=== PATIENT | female | born 1965 | race Caucasian/White ===

== ENCOUNTER → 2016-10-03 | Outpatient (CLI) | payer OTHER ==
--- NOTE | 2016-10-03 09:20 | REPMRS ---
Patient History The patient states she had a clinical breast exam in 10/04 Family history of colorectal cancer in maternal grandmother at age 50 or over. Taking hormonal contraceptives for 28 years. Digital Woman Screen Mammo: October 03, 2016 - Exam #: [id number] Bilateral CC and MLO view(s) were taken. Technologist: Kailey Oleary, Technologist Prior study comparison: September 30, 2015, digital woman screen mammo performed at [facility]. September 29, 2014, digital woman screen mammo performed at [facility]. September 03, 2013, digital woman screen mammo performed at [facility]. FINDINGS: The breast tissue is heterogeneously dense. This may lower the sensitivity of mammography. There is a moderate amount of heterogeneously dense fibroglandular tissue which is fairly symmetric. There is no interval development of dominant mass, architectural distortion, or clustered microcalcification typical of malignancy. There has been no change in the appearance of the mammogram from the prior studies. ASSESSMENT: BI-RADS/ACR category 1 mammogram. Negative. Recommendation Routine screening mammogram of both breasts in 1 year (for women over age 40). This mammogram was interpreted with the aid of an FDA-approved computer-aided dectection system. Electronically Signed By: Chung Haro MD 10/03/16 0919
== END ==
LOC: M WHC 08:02
PROVIDERS: ATTEND Nurse Practitioner Family
DX: Z12.31 Encounter for screening mammogram for malignant neoplasm of breast (principal); Z79.3 Long term (current) use of hormonal contraceptives

== ENCOUNTER → 2016-10-03 | Outpatient (REF) | payer OTHER | LOC: M SFHCWAGY 11:13 | PROVIDERS: ATTEND Nurse Practitioner Family | DX: Z12.4 Encounter for screening for malignant neoplasm of cervix (principal) ==

== ENCOUNTER → 2017-03-17 | Outpatient (CLI) | payer OTHER ==
--- NOTE | 2017-03-17 09:29 | REP ---
Clinical: Abnormal uterine bleeding . Technique: Transabdominal pelvic ultrasound followed by transvaginal examination for better evaluation of the endometrium and adnexa with color Doppler evaluation of the ovaries. Findings: Bladder is unremarkable and measures 8.1 x 5.5 x 9.3 cm . Myomatous retroverted uterus measures 8.9 x 5.0 x 4.1 cm. The endometrial complex measures 4.5 mm thickness. IUD is identified in satisfactory position. Right posterior intramural fibroid measures 2.2 cm maximal diameter. Right lateral intramural fibroid measures 1.1 cm maximal diameter. Left lateral intramural fibroid measures 1 cm maximal diameter. Left ovary measures 3.9 x 2.8 x 3.0 cm and includes 1.3 cm and 3.1 cm cysts. Right ovary measures 3.4 x 1.7 x 1.6 cm. No pelvic fluid or adnexal mass lesion identified. Impression: 1. Heterogeneous myomatous retroverted uterus with at least three discrete intramural fibroids as described above. IUD in satisfactory position. 2. Likely physiologic cysts within the left ovary. Consider follow-up examination in 4-6 weeks to evaluate for resolution.
== END ==
LOC: M WHC 07:53
PROVIDERS: ATTEND Nurse Practitioner Family
DX: N93.9 Abnormal uterine and vaginal bleeding, unspecified (principal); D25.9 Leiomyoma of uterus, unspecified; N85.4 Malposition of uterus

== ENCOUNTER → 2017-03-17 | Outpatient (REF) | payer OTHER ==
[2017-03-17 12:29] LABS: FOLLICLE STIMULATING HORMONE 27.8 mIU/mL
== END ==
LOC: M SFHCWAGY 11:27
PROVIDERS: ATTEND Nurse Practitioner Family
DX: N93.9 Abnormal uterine and vaginal bleeding, unspecified (principal); N95.1 Menopausal and female climacteric states

== ENCOUNTER → 2017-10-03 | Outpatient (CLI) | payer OTHER | LOC: M WHC 08:13 | DX: Z12.31 Encounter for screening mammogram for malignant neoplasm of breast (principal); R92.2 Inconclusive mammogram | CPT/HCPCS: 77067 ==

== ENCOUNTER → 2017-10-06 | Outpatient (CLI) | payer OTHER | LOC: M RAD 08:49 | DX: R92.8 Other abnormal and inconclusive findings on diagnostic imaging of breast (principal); R92.0 Mammographic microcalcification found on diagnostic imaging of breast | CPT/HCPCS: 77065 ==

== ENCOUNTER → 2018-10-04 | Outpatient (CLI) | payer OTHER ==
--- NOTE | 2018-10-04 08:57 | REPMRS ---
Patient History The patient states she had a clinical breast exam in 10/06 Family history of colorectal cancer at age 50 or over in maternal grandmother. Taking hormonal contraceptives for 30 years. Digital Woman Screen Mammo: October 04, 2018 - Exam #: [id number] Bilateral CC and MLO view(s) were taken. Technologist: Kailey Oleary, Technologist Prior study comparison: October 03, 2017, digital woman screen mammo performed at [facility]. October 03, 2016, digital woman screen mammo performed at [facility]. September 30, 2015, digital woman screen mammo performed at [facility]. FINDINGS: The breast tissue is heterogeneously dense. This may lower the sensitivity of mammography. The previously noted left breast calcifications have become a little more coarse. Otherwise unchanged. There is a moderate amount of heterogeneously dense fibroglandular tissue which is fairly symmetric. There is no interval development of dominant mass, architectural distortion, or clustered microcalcification typical of malignancy. There has been no change in the appearance of the mammogram from the prior studies. 3-D tomosynthesis shows no additional findings. Assessment: BI-RADS/ACR category 2 mammogram. Benign finding(s). Recommendation Routine screening mammogram of both breasts in 1 year (for women over age 40). This patient's Lifetime Breast Cancer RIsk is estimated at 10.5 %. This mammogram was interpreted with the aid of an FDA-approved computer-aided dectection system. Electronically Signed By: Chung Haro MD 10/04/18 0857
== END ==
LOC: M WHC 08:04
PROVIDERS: ATTEND Nurse Practitioner Family
DX: Z12.31 Encounter for screening mammogram for malignant neoplasm of breast (principal); Z80.0 Family history of malignant neoplasm of digestive organs; N60.31 Fibrosclerosis of right breast; N60.32 Fibrosclerosis of left breast

== ENCOUNTER → 2019-07-11 | Outpatient (CLI) | payer OTHER ==
--- NOTE | 2019-07-12 14:50 | REP ---
Clinical: Abnormal vaginal bleeding. Technique: Transabdominal pelvic ultrasound followed by transvaginal examination for better evaluation of the endometrium and adnexa. Findings: Bladder is unremarkable and measures 10.8 x 7.4 x 8.8 cm. Heterogeneous retroverted uterus measures 7.6 x 3.9 x 5.2 cm with 2.0 x 1.5 x 1.8 cm anterior intramural fibroid. IUD identified towards the fundus. The endometrial complex is incompletely evaluated due to technical factors. Bilateral ovaries are normal in vascularity without torsion. Right ovary measures 4.6 x 2.1 x 3.7 cm (RI 0.65) and includes 2.9 x 1.7 x 3.0 cm cyst. Left ovary measures 3.5 x 1.6 x 2.1 cm and includes 1.7 cm dominant follicle. No pelvic fluid or adnexal mass lesion. Impression: 1. Heterogeneous uterus with 2 cm anterior intramural fibroid and IUD identified towards the fundus. Evaluation is somewhat limited due to technical factors. 2. Ovaries include a cyst and dominant follicle as described above. Consider reevaluation in 4-6 weeks to evaluate for resolution. Electronically Signed by Jordan Sherman MD 07/12/2019 02:42 P
== END ==
LOC: M RAD 07:02
PROVIDERS: ATTEND Nurse Practitioner Family
DX: N93.9 Abnormal uterine and vaginal bleeding, unspecified (principal); D25.1 Intramural leiomyoma of uterus; N83.201 Unspecified ovarian cyst, right side; Z97.5 Presence of (intrauterine) contraceptive device

== ENCOUNTER → 2019-10-08 | Outpatient (REF) | payer OTHER | LOC: M SFHCWAGY 11:48 | PROVIDERS: ATTEND Nurse Practitioner Family | DX: Z12.4 Encounter for screening for malignant neoplasm of cervix (principal) | CPT/HCPCS: 87624; G0123 ==

== ENCOUNTER → 2019-10-08 | Outpatient (CLI) | payer OTHER ==
--- NOTE | 2019-10-08 09:50 | REPMRS ---
Patient History The patient states she had a clinical breast exam in 09/2019. Family history of colorectal cancer at age 50 or over in maternal grandmother. Taking hormonal contraceptives for 31 years. Digital Woman Screen Mammo: October 08, 2019 - Exam #: [id number] Bilateral CC and MLO view(s) were taken. Technologist: Shanae Valentin, Technologist Prior study comparison: October 04, 2018, bilateral digital woman screen mammo performed at [facility]. October 06, 2017, left breast digital mammo diagnostic unilateral, performed at [facility]. October 03, 2017, digital woman screen mammo performed at [facility]. October 03, 2016, digital woman screen mammo performed at [facility]. FINDINGS: The breast tissue is heterogeneously dense. This may lower the sensitivity of mammography. Benign-appearing calcifications are again noted on the left. There is a moderate amount of heterogeneously dense fibroglandular tissue which is fairly symmetric. There is no interval development of dominant mass, architectural distortion, or grouped microcalcification typical of malignancy. There has been no change in the appearance of the mammogram from the prior studies. 3-D tomosynthesis shows no additional findings. Assessment: BI-RADS/ACR category 2 mammogram. Benign Findings. Recommendation Routine screening mammogram of both breasts in 1 year (for women over age 40). This patient's Lifetime Breast Cancer RIsk is estimated at 10.3 %. This mammogram was interpreted with the aid of an FDA-approved computer-aided dectection system. Electronically Signed By: Chung Haro MD 10/08/19 0913
== END ==
LOC: M WHC 08:38
PROVIDERS: ATTEND Nurse Practitioner Family
DX: Z12.31 Encounter for screening mammogram for malignant neoplasm of breast (principal); Z80.0 Family history of malignant neoplasm of digestive organs; R92.1 Mammographic calcification found on diagnostic imaging of breast

== ENCOUNTER → 2020-10-28 | Outpatient (REF) | payer OTHER | LOC: M SFHCWAGY 11:43 | PROVIDERS: ATTEND Nurse Practitioner Family | DX: N84.1 Polyp of cervix uteri (principal) ==

== ENCOUNTER → 2020-10-28 | Outpatient (CLI) | payer OTHER ==
--- NOTE | 2020-10-28 09:25 | REPMRS ---
Patient History The patient states she had a clinical breast exam in 10/2020 Family history of colorectal cancer at age 50 or over in maternal grandmother. Taking hormonal contraceptives for 32 years. Digital Woman Screen Mammo: October 28, 2020 - Exam #: [id number] Bilateral CC and MLO view(s) were taken. Technologist: Kailey Oleary, Technologist Prior study comparison: October 08, 2019, bilateral digital woman screen mammo performed at [facility]. October 04, 2018, bilateral digital woman screen mammo performed at [facility]. October 03, 2017, digital woman screen mammo performed at [facility]. FINDINGS: The breast tissue is heterogeneously dense. This may lower the sensitivity of mammography. The Volpara volumetric breast density category is: C. There is a moderate amount of heterogeneously dense fibroglandular tissue which is fairly symmetric. There is no interval development of dominant mass, architectural distortion, or grouped microcalcification typical of malignancy. There has been no change in the appearance of the mammogram from the prior studies. 3-D tomosynthesis shows no additional findings. Assessment: BI-RADS/ACR category 1 mammogram. Negative Mammogram. Recommendation Routine screening mammogram of both breasts in 1 year (for women over age 40). This patient's [facility] Lifetime Breast Cancer RIsk is estimated at 10.0 %. This mammogram was interpreted with the aid of an FDA-approved computer-aided dectection system. Electronically Signed By: Chung Haro MD 10/28/20 0985
== END ==
LOC: M WHC 07:57
PROVIDERS: ATTEND Nurse Practitioner Family
DX: Z12.31 Encounter for screening mammogram for malignant neoplasm of breast (principal)

== ENCOUNTER → 2022-03-02 | Outpatient (REF) | payer OTHER | LOC: M SFHCWAGY 12:47 | PROVIDERS: ATTEND Obstetrics & Gynecology | DX: Z12.4 Encounter for screening for malignant neoplasm of cervix (principal); Z77.9 Other contact with and (suspected) exposures hazardous to health | CPT/HCPCS: 87624; G0123 ==

== ENCOUNTER → 2022-03-02 | Outpatient (CLI) | payer OTHER | LOC: M WHC 07:57 | PROVIDERS: ATTEND Obstetrics & Gynecology | DX: Z12.31 Encounter for screening mammogram for malignant neoplasm of breast (principal); Z80.0 Family history of malignant neoplasm of digestive organs ==

== ENCOUNTER → 2023-03-16 | Outpatient (REF) | payer OTHER | LOC: M SFHCWAGY 13:49 | PROVIDERS: ATTEND Obstetrics & Gynecology | DX: Z12.4 Encounter for screening for malignant neoplasm of cervix (principal) | CPT/HCPCS: 87624; G0123 ==

== ENCOUNTER → 2023-03-16 | Outpatient (CLI) | payer OTHER | LOC: M WHC 08:00 | PROVIDERS: ATTEND Obstetrics & Gynecology | DX: Z12.31 Encounter for screening mammogram for malignant neoplasm of breast (principal) ==

== ENCOUNTER → 2023-12-28 | Outpatient (REF) | payer OTHER ==
[2023-12-28 17:03] LABS: APPEARANCE, URINE CLEAR (CLEAR); BACTERIA, URINE AUTO NEGATIVE (NEGATIVE); BILIRUBIN, URINE AUTO NEGATIVE (NEGATIVE); BLOOD, URINE BLOOD NEGATIVE (NEGATIVE); COLOR, URINE STRAW (YELLOW); GLUCOSE, URINE (UA) AUTO NEGATIVE (NEGATIVE); KETONE, URINE AUTO NEGATIVE (NEGATIVE); LEUKOCYTE ESTERASE, URINE AUTO NEGATIVE (NEGATIVE); NITRITE, URINE AUTO NEGATIVE (NEGATIVE); PROTEIN, URINE AUTO NEGATIVE (NEGATIVE); RBC, URINE AUTO 0 /HPF (0-3); SPECIFIC GRAVITY URINE AUTO 1.012 (1.002-1.035); SQUAMOUS EPITHELIAL CELL UR AU 0 /HPF (0-6); UROBILINOGEN, URINE AUTO 0.2 mg/dL (0.0-2.0); WBC, URINE AUTO 0 /HPF (0-3)
== END ==
LOC: M LAB REF 16:27
PROVIDERS: ATTEND Physician Assistant
DX: N39.0 Urinary tract infection, site not specified (principal)

== ENCOUNTER → 2024-07-22 | Outpatient (REF) | payer OTHER ==
[2024-07-24 16:02] LABS: HPV APTIMA Not Detected (Not Detected)
== END ==
LOC: M SFHCWAGY 13:10
PROVIDERS: ATTEND Obstetrics & Gynecology
DX: Z12.4 Encounter for screening for malignant neoplasm of cervix (principal); Z77.9 Other contact with and (suspected) exposures hazardous to health
CPT/HCPCS: 87624; G0123

== ENCOUNTER → 2024-07-22 | Outpatient (CLI) | payer OTHER | LOC: M WHC 07:29 | PROVIDERS: ATTEND Obstetrics & Gynecology | DX: Z12.31 Encounter for screening mammogram for malignant neoplasm of breast (principal) ==

== ENCOUNTER → 2025-07-23 | Outpatient (CLI) | payer OTHER ==
[2025-07-23 10:32] LABS: PLATELET COUNT, AUTOMATED 226 10^3/uL (150-450)
[2025-07-23 11:02] LABS: ALT/SGPT 22 U/L (7.0-40); AST/SGOT 21 U/L (<34); CALCIUM LEVEL 9.3 MG/DL (8.5-10.1); CARBON DIOXIDE LEVEL 28 MMOL/L (20-31); CHLORIDE LEVEL 105 MMOL/L (98-107); CREATININE FOR GFR 0.76 MG/DL (0.55-1.30); GLOMERULAR FILTRATION RATE > 90.0 (>51); POTASSIUM SERUM 4.5 MMOL/L (3.5-5.1); SODIUM LEVEL 142 MMOL/L (136-145)
[2025-07-23 11:04] LABS: ESTRADIOL < 19.0 PG/ML; LUTEINIZING HORMONE 32.1 mIU/ML
== END ==
LOC: M PLALAB 09:10
PROVIDERS: ATTEND Obstetrics & Gynecology
DX: Z12.4 Encounter for screening for malignant neoplasm of cervix (principal); Z78.0 Asymptomatic menopausal state
CPT/HCPCS: 36415; 80053; 82670; 83001; 83002; 84443; 85027; G0123

== ENCOUNTER → 2025-07-23 | Outpatient (CLI) | payer OTHER | LOC: M WHC 07:27 | PROVIDERS: ATTEND Obstetrics & Gynecology | DX: Z12.31 Encounter for screening mammogram for malignant neoplasm of breast (principal) ==